=== PATIENT | female | born 1970 | race Caucasian/White ===

== ENCOUNTER 2018-04-29 15:03 | Emergency (ER) | payer OTHER ==
[2018-04-29 15:04] VITALS: BMI 39.0
[2018-04-29 15:33] VITALS: RESP 18; TEMP 98.4
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
[2018-04-29 17:51] VITALS: BP 145/89; PULSE 78; O2SAT 98
== END 2018-04-29 17:51 | disposition home or self-care (01) ==
LOC: ED 15:03
DX: S16.1XXA Strain of muscle, fascia and tendon at neck level, initial encounter (principal); V49.9XXA Car occupant (driver) (passenger) injured in unspecified traffic accident, initial encounter; R51 Headache; M25.511 Pain in right shoulder; E11.9 Type 2 diabetes mellitus without complications; I10 Essential (primary) hypertension